=== PATIENT | female | born 1995 | race Asian ===

== ENCOUNTER 2020-01-04 17:20 | Inpatient (IN) ==
[2020-01-04 20:50] LABS: Urine Appearance Clear; Urine Bilirubin Negative (Negative); Urine Blood 1+ (Negative); Urine Color Straw; Urine Glucose Negative (Negative); Urine Ketones Trace (Negative); Urine Nitrite Negative (Negative); Urine Protein Negative (Negative); Urine Specific Gravity 1.008 (1.010-1.030); Urine Urobilinogen Negative (Negative)
[2020-01-04 21:04] LABS: Urine Benzodiazepine Screen None Detected (None Detect); Urine Cannabinoids Screen None Detected (None Detect); Urine Opiates Screen None Detected (None Detect)
[2020-01-04 21:06] LABS: Urine Bacteria 1+ (Absent); Urine Red Blood Cell Trace(0-2/hpf) (Absent); Urine Squamous Epithelial Cell Present (Absent); Urine White Blood Cell Trace(0-5/hpf) (Absent)
[2020-01-04 22:03] LABS: ABS Eosinophils 0.1 10^3/ul (0-0.6); ABS Lymphocytes 2.6 10^3/ul (1.0-4.8); ABS Monocytes 0.3 10^3/ul (0-0.8); ABS Neutrophils 3.3 10^3/ul (1.5-7.7); Eosinophil % 1.9 %; Hematocrit 39 % (35-47); Hemoglobin 13.5 g/dL (12.0-16.0); Lymphocyte % 40.9 %; Mean Corpuscular HGB Conc 35 g/dL (31-36); Mean Corpuscular Hemoglobin 30 pg (27-31); Mean Corpuscular Volume 85 fL (80-97); Mean Platelet Volume 7.7 fL (7.4-10.4); Nucleated Red Blood Cells % 0.1; Platelet Count 271 10^3/uL (150-450); Red Blood Count 4.57 10^6 /uL (3.70-4.87); Red Cell Distribution Width 12 % (10-15); White Blood Count 6.4 10^3/uL (3.5-10.8)
[2020-01-04 22:16] LABS: ALT 5 U/L (7-52); AST 9 U/L (13-39); Albumin 4.3 g/dL (3.2-5.2); Albumin/Globulin Ratio 1.7 (1-3); Alkaline Phosphatase 45 U/L (34-104); Anion Gap 8 mmol/L (2-11); BUN/Creatinine Ratio 13.3 (8-20); Blood Urea Nitrogen 10 mg/dL (6-24); CO2 Carbon Dioxide 23 mmol/L (22-32); Calcium 9.1 mg/dL (8.6-10.3); Chloride 106 mmol/L (101-111); EGFR African American 114.9 (>60); EGFR Non-African American 94.9 (>60); Globulin 2.5 g/dL (2-4); Glucose 82 mg/dL (70-100); Potassium 3.5 mmol/L (3.5-5.0); Sodium 137 mmol/L (135-145); Total Protein 6.8 g/dL (6.4-8.9)
[2020-01-04 22:34] LABS: Acetaminophen < 15 mcg/mL; Alcohol, S < 10 mg/dL (<10); Salicylate < 2.50 mg/dL (<30)
[2020-01-04 22:50] LABS: TSH Ultra Thyroid Stim Horm 2.93 mcIU/mL (0.34-5.60)
[2020-01-05] MEDS ORDERED: Al Hydrox/Mg Hydrox/Simet LIQ 30 ML UDC PO PRN (01:51)
[2020-01-05] MEDS: Vitamin THERAPEUTIC TAB PO SCH (09:44)
[2020-01-06 09:34] LABS: Cholesterol 141 mg/dL; LDL Cholesterol 66 mg/dL; Triglycerides 75 mg/dL
[2020-01-06] MEDS: Vitamin THERAPEUTIC TAB PO SCH (11:35)
[2020-01-07] MEDS: Vitamin THERAPEUTIC TAB PO SCH (12:53)
[2020-01-07 15:38] LABS: HCG Pregnancy < 0.60 mIU/mL
[2020-01-08] MEDS: Vitamin THERAPEUTIC TAB PO SCH (10:00)
[2020-01-09] MEDS: Vitamin THERAPEUTIC TAB PO SCH (08:44)
[2020-01-10] MEDS: Vitamin THERAPEUTIC TAB PO SCH (09:30)
[2020-01-11 08:20] VITALS: BP 102/64
[2020-01-11] MEDS: Vitamin THERAPEUTIC TAB PO SCH (09:39)
== END 2020-01-11 11:30 | disposition home or self-care (01) | DRG 885 ==
LOC: EDSEX → ED 17:20 → BSU 22:23
PROVIDERS: ADMIT Psychiatry & Neurology Psychiatry; ATTEND Psychiatry & Neurology Psychiatry